=== PATIENT | male | born 2000 | race Caucasian/White ===

== ENCOUNTER 2019-08-01 16:45 | Emergency (ER) | payer BC ==
[2019-08-01 17:03] VITALS: BP 127/81
--- NOTE | 2019-08-01 18:56 | UC ---
Throat Pain/Nasal Jean HPI - HPI Summary HPI Summary: The patient is a 19-year-old male with a five-day history of fever chills myalgias and headache. He also has a sore throat as well as a mild cough. He denies any chest pain or shortness of breath. He does not have any neck pain or stiffness. He has some mild nausea but no vomiting or diarrhea. He denies any UTI symptoms. He does not recall any tick bites. His headache improves if he lays down. His headache is retro-orbital bulbar as well as occipital. - History of Current Complaint Chief Complaint: UCHeadache Stated Complaint: SORE THROAT Time Seen by Provider: 08/01/19 18:41 Hx Obtained From: Patient Onset/Duration: Gradual Onset, Lasting Days Severity: Moderate Pain Intensity: 1 Pain Scale Used: 0-10 Numeric Cough: Nonproductive Associated Signs & Symptoms: Positive: Fever Related History: Prior ENT Surgery, T & A - Epiglottits Risk Factors Epiglottis Risk Factors: Negative - Allergies/Home Medications Allergies/Adverse Reactions: Allergies Allergy/AdvReac Type Severity Reaction Status Date / Time No Known Allergies Allergy Verified 08/01/19 17:03 Home Medications: Home Medications Acetaminophen TAB* [Tylenol TAB*] 650 mg PO Q6HR 08/01/19 [History Confirmed ] Cetirizine* [ZyrTEC 10 MG TAB*] 10 mg PO Q6HR 08/01/19 [History Confirmed ] PMH/Surg Hx/FS Hx/Imm Hx Previously Healthy: Yes - Surgical History Surgical History: None - Family History Known Family History: Positive: Hypertension, Non-Contributory - Social History Alcohol Use: None Substance Use Type: None Smoking Status (MU): Never Smoked Tobacco Review of Systems All Other Systems Reviewed And Are Negative: Yes Constitutional: Positive: Fever, Chills, Fatigue Eyes: Positive: Negative ENT: Positive: Sore Throat Respiratory: Positive: Cough Cardiovascular: Positive: Negative Gastrointestinal: Positive: Negative Genitourinary: Positive: Negative Motor: Positive: Negative Neurovascular: Positive: Negative Musculoskeletal: Positive: Myalgia Neurological: Positive: Headache Psychological: Positive: Negative Physical Exam Triage Information Reviewed: Yes Appearance: Well-Appearing, No Pain Distress, Well-Nourished Vital Signs: Initial Vital Signs Temp 99.2 F 08/01/19 16:58 Pulse 103 08/01/19 16:58 Resp 16 08/01/19 16:58 BP 127/81 08/01/19 16:58 Pulse Ox 98 08/01/19 16:58 Vital Signs Reviewed: Yes Eyes: Positive: Conjunctiva Clear ENT: Positive: Hearing grossly normal, Pharyngeal erythema, TMs normal, Uvula midline. Negative: Nasal congestion, Nasal drainage, Tonsillar swelling, Tonsillar exudate, Trismus, Muffled voice, Hoarse voice Neck: Positive: Supple, Nontender Respiratory: Positive: Lungs clear, Normal breath sounds, No respiratory distress, No accessory muscle use Cardiovascular: Positive: RRR, No Murmur Abdomen Description: Positive: Nontender, No Organomegaly, Soft. Negative: CVA Tenderness (R), CVA Tenderness (L) Musculoskeletal: Positive: ROM Intact, No Edema Neurological: Positive: Alert Psychological Exam: Normal Skin Exam: Normal Diagnostics - Laboratory Lab Results: strep- Throat Pain/Nasal Course/Dx - Differential Dx/Diagnosis Provider Diagnosis: Viral syndrome Discharge ED - Sign-Out/Discharge Documenting (check all that apply): Patient Departure All imaging exams completed and their final reports reviewed: No Studies - Discharge Plan Condition: Stable Disposition: HOME Patient Education Materials: Viral Syndrome (ED) Referrals: [facility] [Outside] - If Needed Additional Instructions: blood work pending rest fluids recheck for new or worsening symptoms recheck in 4 days if not better - Billing Disposition and Condition Condition: STABLE Disposition: Home
[2019-08-02 12:30] LABS: ABS Basophils 0.1 10^3/ul (0-0.2); ABS Eosinophils 0.1 10^3/ul (0-0.6); ABS Lymphocytes 1.1 10^3/ul (1.0-4.8); ABS Monocytes 0.9 10^3/ul (0-0.8); ABS Neutrophils 4.6 10^3/ul (1.5-7.7); Eosinophil % 1.9 %; Hematocrit 41 % (42-52); Hemoglobin 14.4 g/dL (14.0-18.0); Mean Corpuscular HGB Conc 35 g/dL (31-36); Mean Corpuscular Hemoglobin 29 pg (27-31); Mean Corpuscular Volume 81 fL (80-94); Mean Platelet Volume 8.3 fL (7.4-10.4); Nucleated Red Blood Cells % 0.4; Platelet Count 241 10^3/uL (150-450); Red Blood Count 5.02 10^6 /uL (4.18-5.48); Red Cell Distribution Width 13 % (10-15); White Blood Count 6.8 10^3/uL (3.5-10.8)
== END 2019-08-01 19:28 | disposition home or self-care (01) ==
LOC: UCEAST 16:45
DX: B34.9 Viral infection, unspecified (principal); R51 Headache; M79.10 Myalgia, unspecified site; J02.9 Acute pharyngitis, unspecified; R05 Cough
CPT/HCPCS: 36415; 85025; 86308; 86618; 87651; 99201; G0463